=== PATIENT | female | born 1950 | race Caucasian/White ===

== ENCOUNTER 2016-08-01 18:59 | Emergency (ER) | payer BC ==
--- NOTE | 2016-08-01 20:10 | EDM.PDOC ---
ED HPI GENERAL MEDICAL PROBLEM - General Chief Complaint: General Stated Complaint: KEEPS COLLAPSING NUMBING IN FEET AND HANDS VOMITIN Time Seen by Provider: 08/01/16 19:50 Source of Information: Reports: Patient History Limitations: Reports: No Limitations - History of Present Illness INITIAL COMMENTS - FREE TEXT/NARRATIVE: 66-year-old female presents for evaluation and treatment of weakness and tingling in the hands and feet. Patient's daughter provides the history as the patient speaks mostly [place]ian and does not speak much Russian. Daughter reports that her symptoms started yesterday. States that she complained of shortness of breath. She then developed some dizziness and finally the tingling in the hands and the feet. Patient reports that she is still experiencing tingling in the hands and feet. States it is worse when the blood pressure cuff expands. Daughter reports that she checked on her at around 8:30 this morning and she was doing well. She then checked on her after work. Patient has been working in the [employer] but did not feel she was overexerting herself. Today after work she noticed increased weakness. She couldn't walk upstairs in her legs give out frequently. At one point she developed riders and had one episode of vomiting. Patient reports that she had one episode of diarrhea today. States that she had a dark stool. She denies any loss of consciousness, headaches, chest pain, skin rashes, joint swellings or joint pains, abdominal pain or cramping. Patient reports that she traveled to [place] but returned on 15 July. She states that she may have ate some questionable work last week. Daughter also reports they were in areas with tics but have not found a ticks on them. And again she denies any rashes. Patient reports the one episode of diarrhea today. She denies any other recent GI illnesses. She states that she did have cold symptoms a couple of weeks ago. - Related Data Allergies Allergy/AdvReac Type Severity Reaction Status Date / Time shrimp Allergy Cannot Verified 08/01/16 19:14 Remember Home Meds: Home Meds amLODIPine Besylate/Benazepril [Amlodipine-Benazepril 5-10 MG] 0.25 tab PO DAILY 01/22/16 [History] prednisoLONE Acetate [Pred Forte 1% Ophth Soln] 1 drop EYERT QID 01/22/16 [ History] Meclizine [Antivert] 25 mg PO TID PRN #15 tablet 08/01/16 [Rx] Ondansetron [Zofran ODT] 4 mg PO Q8H #15 tab.dis 08/01/16 [Rx] Potassium Chloride 20 meq PO DAILY #5 tablet.er 08/01/16 [Rx] Past Medical History HEENT History: Reports: Other (See Below) Other HEENT History: chronic ear pain, macular edema Cardiovascular History: Reports: Hypertension Respiratory History: Reports: None Musculoskeletal History: Reports: Osteoporosis - Past Surgical History HEENT Surgical History: Reports: Other (See Below) GI Surgical History: Reports: Appendectomy, Cholecystectomy, Colonoscopy Social & Family History - Tobacco Use Smoking Status *Q: Never Smoker Second Hand Smoke Exposure: No - Recreational Drug Use Recreational Drug Use: No Drug Use in Last 12 Months: No ED ROS GENERAL - Review of Systems Review Of Systems: See Below Constitutional: Reports: Weakness. Denies: Fever HEENT: Denies: Ear Pain Respiratory: Reports: Shortness of Breath Cardiovascular: Denies: Chest Pain GI/Abdominal: Reports: Diarrhea (reports 1 episode today; none since), Vomiting. Denies: Abdominal Pain : Reports: No Symptoms. Denies: Dysuria, Hematuria Skin: Denies: Rash Neurological: Reports: Dizziness, Tingling, Difficulty Walking, Weakness. Denies: Syncope, Trouble Speaking ED EXAM, GENERAL - Physical Exam Exam: See Below Exam Limited By: No Limitations General Appearance: Alert, WD/WN, No Apparent Distress Eye Exam: Bilateral Eye: EOMI, Nystagmus (with horizontal gaze), PERRL Ears: Normal External Exam, Normal Canal, Hearing Grossly Normal Ear Exam: Left Ear: Other (left TM has a patch placed from previous rupture) Nose: Normal Inspection Throat/Mouth: Normal Inspection, Normal Lips, Normal Voice, No Airway Compromise Head: Atraumatic, Normocephalic Neck: Normal Inspection Respiratory/Chest: No Respiratory Distress, Lungs Clear, Normal Breath Sounds Cardiovascular: Normal Peripheral Pulses, Regular Rate, Rhythm, No Edema, No Murmur Peripheral Pulses: 3+: Radial (L), Radial (R), Posterior Tibial (L), Posterior Tibial (R), Dorsalis Pedis (L), Dorsalis Pedis (R) GI/Abdominal: Normal Bowel Sounds, Soft, Non-Tender Neurological: Alert, Oriented, CN II-XII Intact, Normal Cognition, Other ( ataxic gait; 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 No pronator drift. ) Psychiatric: Normal Affect, Normal Mood Skin Exam: Warm, Dry, Normal Color EKG INTERPRETATION EKG Date: 08/01/16 Time: 20:25 Rhythm: NSR Rate (Beats/Min): 72 Mascot: Normal P-Wave: Present QRS: Normal ST-T: Normal QT: Normal Comparison: NA - No Prior EKG EKG Interpretation Comments: NSR at 72 bpm; no ischemic changes. Reviewed by myself and Dr. Clifton. Course - Vital Signs Last Recorded V/S: Last Vital Signs Temp 36.7 C 08/01/16 19:10 Pulse 69 08/01/16 22:57 Resp 18 08/01/16 22:57 BP 130/90 08/01/16 22:57 Pulse Ox 95 08/01/16 22:57 Orthostatic Blood Pressure [ 127/94 Standing] Orthostatic Blood Pressure [ 145/97 Sitting] Orthostatic Blood Pressure [ 126/92 Supine] - Orders/Labs/Meds Labs: Laboratory Tests 08/01/16 08/01/16 08/01/16 Range/Units 20:25 20:25 20:25 WBC 6.42 (3.98-10.04) K/mm3 RBC 4.47 (3.98-5.22) M/mm3 Hgb 13.1 (11.2-15.7) gm/L Hct 37.2 (34.1-44.9) % MCV 83.2 (79.4-94.8) fl MCH 29.3 (25.6-32.2) pg MCHC 35.2 (32.2-35.5) g/dl RDW Std Deviation 37.4 (36.4-46.3) fL Plt Count 159 L (182-369) K/mm3 MPV 9.6 (9.4-12.3) fl Neutrophils % (Manual) 86 H (40-60) % Band Neutrophils % 0 (0-10) % Lymphocytes % (Manual) 12 L (20-40) % Atypical Lymphs % 0 % Monocytes % (Manual) 1 L (2-10) % Eosinophils % (Manual) 0 L (0.7-5.8) % Basophils % (Manual) 1 (0.1-1.2) Platelet Estimate Adequate Plt Morphology Comment Normal RBC Morph Comment Normal D-Dimer, Quantitative < 0.19 L (0.19-0.59) mg/L Puncture Site ABG pH (7.35-7.45) ABG pCO2 (35.0-45.0) mmHg ABG pO2 (80.0-100.0) mmHg ABG HCO3 (22.0-26.0) meq/L ABG O2 Saturation (96.0-97.0) % ABG Base Excess (-2-2.0) Jamari Test A-a Gradient mmHg FiO2 (21.00-100.00) % Sodium 140 (136-145) mEq/L Potassium 3.2 L (3.5-5.1) mEq/L Chloride 104 (98-107) mEq/L Carbon Dioxide 25 (21-32) mEq/L Anion Gap 14.2 (5-15) BUN 15 (7-18) mg/dL Creatinine 0.7 (0.55-1.02) mg/dL Est Cr Clr Drug Dosing TNP Estimated GFR (MDRD) > 60 (>60) mL/min BUN/Creatinine Ratio 21.4 H (14-18) Glucose 125 H (80-115) mg/dL Calcium 8.3 L (8.5-10.1) mg/dL Magnesium 2.0 (1.8-2.4) mg/dl Total Bilirubin 0.8 (0.2-1.0) mg/dL AST 27 (15-37) U/L ALT 34 (14-59) U/L Alkaline Phosphatase 65 (46-116) U/L Troponin I (0.00-0.056) ng/mL C-Reactive Protein 4.0 H* (<1.0) mg/dL Total Protein 7.3 (6.4-8.2) g/dl Albumin 3.8 (3.4-5.0) g/dl Globulin 3.5 gm/dL Albumin/Globulin Ratio 1.1 (1-2) TSH 3rd Generation 1.637 (0.358-3.74) uIU/mL Urine Color (Yellow) Urine Appearance (Clear) Urine pH (5.0-8.0) Ur Specific [place] (1.005-1.030) Urine Protein (Negative) Urine Glucose (UA) (Negative) Urine Ketones (Negative) Urine Occult Blood (Negative) Urine Nitrite (Negative) Urine Bilirubin (Negative) Urine Urobilinogen (0.2-1.0) Ur Leukocyte Esterase (Negative) Urine RBC (0-5) /hpf Urine WBC (0-5) /hpf Ur Epithelial Cells (0-5) /hpf Urine Bacteria (FEW) /hpf Urine Mucus (FEW) /hpf 08/01/16 08/01/16 08/01/16 Range/Units 20:25 21:55 22:28 WBC (3.98-10.04) K/mm3 RBC (3.98-5.22) M/mm3 Hgb (11.2-15.7) gm/L Hct (34.1-44.9) % MCV (79.4-94.8) fl MCH (25.6-32.2) pg MCHC (32.2-35.5) g/dl RDW Std Deviation (36.4-46.3) fL Plt Count (182-369) K/mm3 MPV (9.4-12.3) fl Neutrophils % (Manual) (40-60) % Band Neutrophils % (0-10) % Lymphocytes % (Manual) (20-40) % Atypical Lymphs % % Monocytes % (Manual) (2-10) % Eosinophils % (Manual) (0.7-5.8) % Basophils % (Manual) (0.1-1.2) Platelet Estimate Plt Morphology Comment RBC Morph Comment D-Dimer, Quantitative (0.19-0.59) mg/L Puncture Site Lt radial ABG pH 7.47 H (7.35-7.45) ABG pCO2 28.5 L (35.0-45.0) mmHg ABG pO2 65.0 L (80.0-100.0) mmHg ABG HCO3 20.3 L (22.0-26.0) meq/L ABG O2 Saturation 93.3 L (96.0-97.0) % ABG Base Excess -2.0 (-2-2.0) Jamari Test Positive A-a Gradient 34 mmHg FiO2 21.00 (21.00-100.00) % Sodium (136-145) mEq/L Potassium (3.5-5.1) mEq/L Chloride (98-107) mEq/L Carbon Dioxide (21-32) mEq/L Anion Gap (5-15) BUN (7-18) mg/dL Creatinine (0.55-1.02) mg/dL Est Cr Clr Drug Dosing Estimated GFR (MDRD) (>60) mL/min BUN/Creatinine Ratio (14-18) Glucose (80-115) mg/dL Calcium (8.5-10.1) mg/dL Magnesium (1.8-2.4) mg/dl Total Bilirubin (0.2-1.0) mg/dL AST (15-37) U/L ALT (14-59) U/L Alkaline Phosphatase (46-116) U/L Troponin I < 0.017 (0.00-0.056) ng/mL C-Reactive Protein (<1.0) mg/dL Total Protein (6.4-8.2) g/dl Albumin (3.4-5.0) g/dl Globulin gm/dL Albumin/Globulin Ratio (1-2) TSH 3rd Generation (0.358-3.74) uIU/mL Urine Color Yellow (Yellow) Urine Appearance Clear (Clear) Urine pH 8.5 H (5.0-8.0) Ur Specific [place] 1.015 (1.005-1.030) Urine Protein 2+ H (Negative) Urine Glucose (UA) Negative (Negative) Urine Ketones 2+ H (Negative) Urine Occult Blood Negative (Negative) Urine Nitrite Negative (Negative) Urine Bilirubin Negative (Negative) Urine Urobilinogen 1.0 (0.2-1.0) Ur Leukocyte Esterase Negative (Negative) Urine RBC 0-5 (0-5) /hpf Urine WBC 0-5 (0-5) /hpf Ur Epithelial Cells 5-10 H (0-5) /hpf Urine Bacteria Rare (FEW) /hpf Urine Mucus Not seen (FEW) /hpf Meds: Medications Discontinued Medications Generic Name Dose Route Start Last Admin Trade Name Freq PRN Reason Stop Dose Admin Lactated Ringer's 1,000 mls @ 999 mls/hr 08/01/16 21:35 08/01/16 21:57 Ringers, Lactated IV 08/01/16 22:35 999 mls/hr .BOLUS ONE Administration Lorazepam 0.5 mg 08/01/16 23:29 08/01/16 23:43 Ativan IVPUSH 08/01/16 23:30 0.5 mg ONETIME ONE Administration Meclizine HCl 25 mg 08/01/16 23:29 08/01/16 23:43 Antivert PO 08/01/16 23:30 25 mg ONETIME ONE Administration Potassium Chloride 20 meq 08/01/16 21:34 08/01/16 21:57 Klor-Con M20 PO 08/01/16 21:35 20 meq ONETIME ONE Administration Sodium Chloride 10 ml 08/01/16 20:13 08/01/16 20:17 Saline Flush FLUSH 10 ml ASDIRECTED PRN Administration Keep Vein Open - Radiology Interpretation Free Text/Narrative:: chest 1 view impression shows no acute intrathoracic process. - Re-Assessments/Exams Free Text/Narrative Re-Assessment/Exam: 08/01/16 22:59 Labs returned. WBC is 6.42, hgb is 13.1 and plts are 159 sodium is 140, potassium is 3.2 (potassium supplementation ordered) and chloride is 104. calcium is 8.3. glucose is 125. anion gap is 14.2 UA has 2+ protein and 2+ ketones TSH is within normal limits at 1.637 trop is within normal limits at <0.017 d-dimer is within normal limits at <0.19 I discussed the case with Dr. Clifton. He recommended adding on a blood gas which returned with the following. PH of 7.42, PCO2 28.5, PO2 65 and bicarbonate of 20.3. This suggesting hyperventilation causing a respiratory alkalosis. He then further recommended I rule out causes of the respiratory alkalosis by ordering a troponin. I have ruled out a PE, thyroid abnormalities and other causes. We discussed GBS. He feels that this presentation is not consistent with GBS. 08/01/16 23:31 trop returned at <0.017 I reviewed the labs, ekg and chest xray with the patient and her daughter. Patient reports tingling has resolved. We discussed her symptoms further. Daughter reports that she continues to have dizziness and nausea. States she had difficulty going to the bathroom due to the dizziness. It was my understanding earlier that she could not walk due to her weakness. When I discuss this more with the daughter. It sounds like she might be having more difficulty walking due to her dizziness. Her neuro exam showed some horizontal nystagmus with lateral gaze. No additional abnormalities identified. Patient did have a cold several weeks ago. She also has a patch on her left tympanic membrane from a previous rupture. I feel she is likely suffering from vertigo. We will discharge her home after she is given some meclizine and Ativan to help with her symptoms currently. We will have her follow up closely with her primary care provider. Departure - Departure Time of Disposition: 23:50 Disposition: Home, Self-Care 01 Condition: Fair Clinical Impression: Hypokalemia, Vertigo - Discharge Information Prescriptions: Meclizine [Antivert] 25 mg PO TID PRN #15 tablet PRN Reason: Dizziness Ondansetron [Zofran ODT] 4 mg PO Q8H #15 tab.dis Potassium Chloride 20 meq PO DAILY #5 tablet.er Instructions: Hypokalemia Referrals: Coretta Silver, [facility] [Primary Care Provider] - Forms: ED Department Discharge Additional Instructions: Follow-up with Coretta Silver This week or Monday. Take the potassium as prescribed. 1 tab PO daily. Take the zofran 1 tab sublingual every 8 hours prn nausea. Take the meclizine 1 tab PO every 8 hours prn dizziness. Rest and make sure you are drinking plenty of fluids. Please return to the ER should your symptoms change or worsen.
[2016-08-01] MEDS ORDERED: Sodium Chloride 0.9% 10 ML Syringe FLUSH PRN (20:13)
[2016-08-01] MEDS ORDERED: Potassium Chloride 20 MEQ Tab.ER PO ONE (21:34)
[2016-08-01] MEDS ORDERED: Lactated Ringers 1,000 ML IV ONE (21:35)
[2016-08-01 22:58] VITALS: BP 130/90
[2016-08-01] MEDS ORDERED: LORazepam 2 MG/ML MDV IVPUSH ONE (23:29)
[2016-08-01] MEDS ORDERED: Meclizine 12.5 MG Tab PO ONE (23:29)
--- NOTE | 2016-08-02 09:07 | CR ---
Chest: Portable view of the chest was obtained. Comparison: No previous study. Heart size is normal. Tortuous thoracic aorta is seen. Lungs are clear. Bony structures are grossly intact. Impression: 1. Nothing acute is identified on portable chest x-ray. Diagnostic code #1
== END 2016-08-02 00:07 | disposition home or self-care (01) ==
LOC: JD.ED 18:59
DX: E87.6 Hypokalemia (principal); R42 Dizziness and giddiness; I10 Essential (primary) hypertension; Z91.013 Allergy to seafood; Z79.899 Other long term (current) drug therapy; Z90.49 Acquired absence of other specified parts of digestive tract
CPT/HCPCS: 36415; 36600; 71010; 80053; 81001; 82803; 83735; 84443; 84484; 85025; 85379; 86140; 93005; 96361; 96374; 99284; A9270; J2060; J7050; J7120

== ENCOUNTER 2017-07-06 11:58 | Day surgery (SDC) | payer BC ==
[~2017-07-06 11:58] MED LIST: Cefuroxime 10 MG/ML SYRINGE EYERT SCH; Lidocaine 1% PF 2 ML SDV INJECT SCH; Pilocarpine 4% Ophth Soln 15 ML Bot EYERT SCH
[2017-07-06] MEDS: Polymyxin B/Trimethoprim 10 ML Bottle EYERT SCH ×3 (12:07→13:48)
[2017-07-06] MEDS: Brimonidine 0.2% Ophth Soln 5 ML Bottle EYERT SCH ×3 (12:10→13:48)
[2017-07-06] MEDS: Phenylephrine 2.5% Ophth Soln 2 ML Bot EYERT SCH ×5 (12:16→13:27)
[2017-07-06] MEDS: Tropicamide 1% Ophth Soln 3 ML Bottle EYERT SCH ×4 (12:19→12:58)
--- NOTE | 2017-07-06 12:34 | PCM.PREANE ---
Preanesthetic Assessment - Anesthesia/Transfusion/Family Hx Anesthesia History: Prior Anesthesia Without Reaction Family History of Anesthesia Reaction: No Transfusion History: No Prior Transfusion(s) Intubation History: Unknown - Review of Systems General: No Symptoms Pulmonary: No Symptoms (March bronchitis which has now resolved.) Cardiovascular: No Symptoms (History of HTN) Gastrointestinal: No Symptoms Neurological: No Symptoms (history of vertigo) Other: Reports: None - Physical Assessment NPO Status Date: 07/05/17 NPO Status Time: 19:00 Pulse: 71 O2 Sat by Pulse Oximetry: 99 Respiratory Rate: 16 Blood Pressure: 127/81 Temperature: 36.9 C Height: 1.68 m Weight: 61.235 kg ASA Class: 2 Mental Status: Alert & Oriented x3 Airway Class: Mallampati = 2 Dentition: Reports: Dentures (upper and lower) Thyro-Mental Finger Breadths: 3 Mouth Opening Finger Breadths: 3 ROM/Head Extension: Full Lungs: Clear to Auscultation, Normal Respiratory Effort Cardiovascular: Regular Rate, Regular Rhythm, No Murmurs - Allergies Allergies/Adverse Reactions: Allergies Allergy/AdvReac Type Severity Reaction Status Date / Time shrimp Allergy Cannot Verified 07/05/17 14:41 Remember - Anesthesia Plan Pre-Op Medication Ordered: None - Acknowledgements Anesthesia Type Planned: MAC Pt an Appropriate Candidate for the Planned Anesthesia: Yes Alternatives and Risks of Anesthesia Discussed w Pt/Guardian: Yes Pt/Guardian Understands and Agrees with Anesthesia Plan: Yes PreAnesthesia Questionnaire HEENT History: Reports: Other (See Below) Other HEENT History: chronic ear pain, macular edema Cardiovascular History: Reports: Hypertension Respiratory History: Reports: None Musculoskeletal History: Reports: Osteoporosis - Past Surgical History HEENT Surgical History: Reports: Other (See Below) GI Surgical History: Reports: Appendectomy, Cholecystectomy, Colonoscopy - HOME MEDS Home Medications: Home Meds Alendronate Sodium 70 mg PO WEEKLY 07/05/17 [History] Fish Oil/Seanor-3 Fatty Acids [Fish Oil 1,000 MG] 1 gm PO DAILY 07/05/17 [History ] Ginkgo Biloba 120 mg PO DAILY 07/05/17 [History] Multivitamin [Multi-Day Vitamins] 1 tab PO DAILY 07/05/17 [History] amLODIPine Besylate [Amlodipine Besylate] 5 mg PO DAILY 07/05/17 [History] - CURRENT (IN HOUSE) MEDS Current Meds: Current Medications Brimonidine Tartrate (Alphagan 0.2% Ophth Soln) 0 ml EYERT ASDIRECTED SANDRA Stop: 07/06/17 18:00 Last Admin: 07/06/17 12:10 Dose: 1 drop Cefuroxime Sodium (Zinacef) 0 mg EYERT ASDIRECTED SANDRA Stop: 07/06/17 18:00 Lidocaine HCl (Xylocaine-Mpf 1%) 10 ml INJECT ASDIRECTED SANDRA Stop: 07/06/17 18:00 Phenylephrine HCl (Leighton-Synephrine 2.5% Ophth Soln) 0 ml EYERT ASDIRECTED SANDRA Stop: 07/06/17 18:00 Last Admin: 07/06/17 12:23 Dose: 1 drop Pilocarpine HCl (Pilocar 4% Ophth Soln) 0 ml EYERT ASDIRECTED SANDRA Stop: 07/06/17 18:00 Polymyxin/Trimethoprim Sulfate (Polytrim Ophth Soln) 0 ml EYERT ASDIRECTED SANDRA Stop: 07/06/17 18:00 Last Admin: 07/06/17 12:07 Dose: 1 drop Tetracaine HCl (Tetracaine 0.5% Steri-Unit January) 0 ml EYERT ASDIRECTED SANDRA Stop: 07/06/17 18:00 Tropicamide (Mydriacyl 1% Oph Soln) 0 ml EYERT ASDIRECTED SANDRA Stop: 07/06/17 18:00 Last Admin: 07/06/17 12:26 Dose: 1 drop
[2017-07-06] MEDS: Tetracaine HCl/PF 0.5% 4 ML Bottle EYERT SCH ×2 (13:16→13:37)
--- NOTE | 2017-07-06 13:53 | PCM48HPAN ---
Post Anesthesia Note - EVALUATION WITHIN 48HRS OF ANESTHETIC Vital Signs in Normal Range: Yes Patient Participated in Evaluation: Yes Respiratory Function Stable: Yes Airway Patent: Yes Cardiovascular Function Stable: Yes Hydration Status Stable: Yes Pain Control Satisfactory: Yes Nausea and Vomiting Control Satisfactory: Yes Mental Status Recovered: Yes Pulse Rate: 71 SaO2: 98 Resp Rate: 16 Temperature: 36.9 C Blood Pressure: 127/81 Pulse Rate: 80
[2017-07-06 14:00] VITALS: BP 112/84
== END 2017-07-06 13:58 | disposition home or self-care (01) ==
LOC: JD.SDS 11:58
PROVIDERS: ATTEND Ophthalmology
DX: H25.813 Combined forms of age-related cataract, bilateral (principal); H34.8310 Tributary (branch) retinal vein occlusion, right eye, with macular edema; H35.371 Puckering of macula, right eye; H16.223 Keratoconjunctivitis sicca, not specified as Sjogren's, bilateral; H16.103 Unspecified superficial keratitis, bilateral; I10 Essential (primary) hypertension; M81.0 Age-related osteoporosis without current pathological fracture; Z79.899 Other long term (current) drug therapy
CPT/HCPCS: 66984; C1780; J0697; J2001; A9270-GY